=== PATIENT | female | born 1960 | race Caucasian/White ===

== ENCOUNTER 2021-03-30 15:46 | Emergency (ER) | payer OTHER, SELFPAY ==
--- NOTE | ~2021-03-30 | XR_ITS ---
EXAMINATION: XR facial bones min 3V DATE: 03/30/2021 16:41 INDICATION: Face injury. TECHNIQUE: 4 views of the facial bones were obtained. COMPARISON: None. FINDINGS: There is rightward deviation of the nasal septum. No fracture. IMPRESSION: 1. Rightward deviation of the nasal septum. Reviewed, dictated and finalized at location A.
--- NOTE | ~2021-03-30 | XR_ITS ---
EXAMINATION: XR nasal bones min 3V DATE: 03/30/2021 16:41 INDICATION: Face injury. TECHNIQUE: 3 views of the nasal bones were obtained. COMPARISON: None. FINDINGS: There is mild rightward deviation of the nasal septum. No fracture. IMPRESSION: 1. No fracture. Reviewed, dictated and finalized at location A. IMPRESSION: 1. No fracture.
--- NOTE | ~2021-03-30 | XR_ITS ---
EXAMINATION: XR orbits min 4V DATE: 03/30/2021 16:42 INDICATION: Face injury. TECHNIQUE: 4 views of the orbits were obtained. COMPARISON: None. FINDINGS: There is rightward deviation of the nasal septum. No fracture. IMPRESSION: 1. Rightward deviation of the nasal septum. Reviewed, dictated and finalized at location A.
[2021-03-30 16:02] VITALS: BP 101/70; PULSE 77; RESP 16; TEMP 36.7; O2SAT 100
[2021-03-30 16:16] VITALS: BP 101/70; PULSE 77; RESP 16; TEMP 36.7; O2SAT 100
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
--- NOTE | 2021-03-30 16:52 | PC.NURSE ---
PT DECLINED ICE FOR COMFORT
== END 2021-03-30 17:18 | disposition home or self-care (01) ==
PROVIDERS: Emergency Provider Nurse Practitioner; PCP Internal Medicine
DX: S05.12XA Contusion of eyeball and orbital tissues, left eye, initial encounter (principal); S05.11XA Contusion of eyeball and orbital tissues, right eye, initial encounter; W06.XXXA Fall from bed, initial encounter; F17.210 Nicotine dependence, cigarettes, uncomplicated; Z87.820 Personal history of traumatic brain injury; I10 Essential (primary) hypertension; F41.9 Anxiety disorder, unspecified
CPT/HCPCS: 70150; 70160; 70200; 99203; G0463

== ENCOUNTER 2021-06-02 15:56 | Emergency (ER) | payer OTHER, SELFPAY ==
[2021-06-02 16:00] VITALS: BP 113/72; PULSE 85; RESP 20; TEMP 37; O2SAT 99
--- NOTE | 2021-06-02 16:01 | ED.SKABFB ---
HPI - Skin/Abscess/Foreign Bdy General Chief complaint: Skin/Abscess/Foreign Body Stated complaint: poison ghulam on face Time Seen by Provider: 06/02/21 16:02 Source: patient Mode of arrival: ambulatory Limitations: no limitations History of Present Illness MD complaint: rash Related Data Home Medications Medication Instructions Recorded Confirmed amlodipine 10 mg PO DAILY 03/30/21 06/02/21 atenolol 25 mg PO DAILY 03/30/21 06/02/21 bupropion HCl 150 mg PO QAM 03/30/21 06/02/21 hydrochlorothiazide 12.5 mg PO DAILY 03/30/21 06/02/21 olmesartan 40 mg PO DAILY 03/30/21 06/02/21 montelukast 10 mg PO HS 06/02/21 06/02/21 omeprazole 20 mg PO DAILY 06/02/21 06/02/21 Allergies Allergy/AdvReac Type Severity Reaction Status Date / Time No Known Allergies Allergy Verified 06/02/21 16:16 Review of Systems Review of Systems: CONSTITUTIONAL: Denies fever, chills, or sweats. EYES: Denies visual changes, redness, or discharge. ENT: Denies rhinorrhea, congestion, sore throat, or otalgia. CARDIOVASCULAR: Denies chest pain, palpitations, or edema. RESPIRATORY: Denies cough or dyspnea. GASTROINTESTINAL: Denies abdominal pain, nausea, vomiting, or diarrhea. GENITOURINARY: Denies dysuria or hematuria. SKIN: Denies rash or itching. Itchy rash to both arms and left side of face MUSCULOSKELETAL: Denies back pain, joint pain, or myalgia. NEUROLOGIC: Denies headache, numbness, or weakness. PSYCHIATRIC: Denies anxiety or depression. [facility] Past Medical History Medical History TBI (traumatic brain injury) Family History Family History (Updated 03/30/21 @ 16:41 by Sandra Ocasio CNP) Other Hypertension Social History Social History (Updated 03/30/21 @ 16:43 by Sandra Ocasio CNP) Smoking packs per day: 0.2 Smoking cigarettes per day: 4.0 Smoking status: Current every day smoker Tobacco type: cigarettes Alcohol intake: current Comments At time of signature, agree with nursing past medical, surgical, social and family history. There is no relevant family history pertinent to the presenting complaint Exam Narrative: GENERAL: Well-appearing, well-nourished, and in no acute distress. HEAD: Normocephalic, atraumatic. EYES: PERRLA and EOMI. ENT: Nares clear, no rhinorrhea or epistaxis. Mucous membranes moist. NECK: Supple. CHEST: Clear to auscultation. No respiratory distress. HEART: Regular rate and rhythm. No murmur heard. Normal peripheral pulses. ABDOMEN: Soft, nontender, nondistended, normal active bowel sounds. EXTREMITIES: Normal range of motion. No edema. SKIN: Warm, dry, RASH CONSISTENT WITH RHUS DERMATITIS. LINEAR LAZO WITH WET LIKE APPEARS ON NEW AREAS. DIFFERENT STAGES PRESENT. REDNESS TO LESIONS. NO SIGNS OF INFECTION OR CELLULITIS/ABSCESS. NO VESICLES. NO ULCERATIONS. NO RAISED URTICARIAL LESIONS. NO LESIONS ALONG THE WAISTBAND OR IN WEB SPACES. NO BURROWS. NO PETECHIAE. Rash to left side of face, both forearms and both lower extremities NEURO: No focal deficits. Alert and oriented x3. Sammie Coma Scale Eye Opening: Spontaneous 4 Springer Coma Scale Motor: Obeys Commands 6 Sammie Coma Scale Verbal: Oriented 5 Springer Coma Scale Total 15 Course Vital Signs Vital signs: Vital Signs Temperature 37.0 C 06/02/21 16:00 Pulse Rate 85 06/02/21 16:00 Respiratory Rate 20 06/02/21 16:00 Blood Pressure 113/72 06/02/21 16:00 Pulse Oximetry 99 06/02/21 16:00 Temperature 37.0 C 06/02/21 16:00 Pulse Rate 85 06/02/21 16:00 Respiratory Rate 20 06/02/21 16:00 Blood Pressure 113/72 06/02/21 16:00 Pulse Oximetry 99 06/02/21 16:00 Critical dx considered and discussed with pt. Educated patient on red flag s/s and to go to ED if s/s occur. Discussed with pt when to return to [facility] or primary care provider. Pt gave verbal undertstanding, all questions were answered, and pt was agreeable to plan Regarding diagnosis, Rega
[2021-06-02] MEDS: methylPREDNISolone SOD SUCC 125 MG VIAL IM (16:28)
== END 2021-06-02 16:48 | disposition home or self-care (01) ==
PROVIDERS: Emergency Provider Nurse Practitioner Family; PCP Internal Medicine
DX: L23.7 Allergic contact dermatitis due to plants, except food (principal); F17.210 Nicotine dependence, cigarettes, uncomplicated; Z87.820 Personal history of traumatic brain injury
CPT/HCPCS: 96372; 99213; G0463; J2930

== ENCOUNTER 2021-06-18 11:31 | Emergency (ER) | payer OTHER, SELFPAY ==
[2021-06-18 11:40] VITALS: BP 96/76; PULSE 83; RESP 18; TEMP 36.8; O2SAT 99
--- NOTE | 2021-06-18 12:34 | ED.SKABFB ---
HPI - Skin/Abscess/Foreign Bdy General Chief complaint: Skin/Abscess/Foreign Body Stated complaint: Skin itching Time Seen by Provider: 06/18/21 12:36 Source: patient Mode of arrival: ambulatory Limitations: no limitations History of Present Illness HPI narrative: Lilliana Stinson is a 60 yo female with a PMH of HTN, seasonal allergies, GERD, anxiety, who comes to [facility] with poison ghulam. She was treated here on 06 02 but was not given a taper pack and she continues to have issues with rash on her back and itchy skin Related Data Home Medications Medication Instructions Recorded Confirmed amlodipine 10 mg PO DAILY 03/30/21 06/18/21 atenolol 25 mg PO DAILY 03/30/21 06/18/21 bupropion HCl 150 mg PO QAM 03/30/21 06/18/21 hydrochlorothiazide 12.5 mg PO DAILY 03/30/21 06/18/21 olmesartan 40 mg PO DAILY 03/30/21 06/18/21 montelukast 10 mg PO HS 06/02/21 06/18/21 omeprazole 20 mg PO DAILY 06/02/21 06/18/21 Allergies Allergy/AdvReac Type Severity Reaction Status Date / Time No Known Allergies Allergy Verified 06/18/21 12:05 Review of Systems Review of Systems: CONSTITUTIONAL: Denies fever, chills, sweats. EYES: Denies visual changes, redness, discharge. ENT: Denies rhinorrhea, congestion, sore throat, otalgia. CARDIOVASCULAR: Denies chest pain, palpitations, edema. RESPIRATORY: Denies dyspnea, wheezing, cough GASTROINTESTINAL: Denies abdominal pain, nausea, vomiting, diarrhea. GENITOURINARY: Denies dysuria, hematuria, abnormal discharge SKIN: Contact dermatitis is not resolved since visit on 06-02 NEUROLOGIC: Denies numbness, or focal weakness. PSYCHIATRIC: Denies anxiety or depression. [facility] Past Medical History Medical History (Updated 06/18/21 @ 12:54 by Sandra Ocasio CNP) GERD (gastroesophageal reflux disease) Hypertension Seasonal allergies TBI (traumatic brain injury) Family History Family History (Updated 06/18/21 @ 12:50 by Sandra Ocasio CNP) Other Heart disease Hypertension Social History Social History (Updated 03/30/21 @ 16:43 by Sandra Ocasio CNP) Smoking packs per day: 0.2 Smoking cigarettes per day: 4.0 Smoking status: Current every day smoker Tobacco type: cigarettes Alcohol intake: current Comments At time of signature, I agree with nursing past medical, surgical, social and family history. There is no relevant family history pertinent to the presenting complaint. Exam Narrative: GENERAL: This is a well-nourished, well-developed patient, in mild distress. HEAD: normocephalic, atraumatic. EYES: Sclera clear/white. Vision is grossly intact. EARS: External ears normal, auditory canals clear and without drainage, TMs normal without perforation. Hearing grossly intact. NOSE: External nose normal without nasal discharge, nares without redness, no rhinorrhea. THROAT: Mucous membranes moist, NECK: Neck supple, CARDIOVASCULAR: Regular rate and rhythm without murmurs, gallops, or rubs. RESPIRATORY: Clear to auscultation. Breath sounds equal bilaterally. No wheezes, rales, or rhonchi. GASTROINTESTINAL: Abdomen soft, SKIN: warm, intact with complaints of which he had small amount of red rash along lower back along pant line NEURO: awake, alert, and oriented to person, place and time. There were no obvious focal neurologic abnormalities. Steady gait EXTREMITIES: Normal range of motion. BACK: Nontender without deformity Course Course Emergency Course: Patient was treated with Solu-Medrol on 06 02 but no additional medication Started on taper pack of prednisone and famotidine Discussed poison ghulam transmission and weather close tools shoes had been washed Vital Signs Vital signs: Vital Signs Temperature 98.3 F 06/18/21 11:40 Pulse Rate 83 06/18/21 11:40 Respiratory Rate 18 06/18/21 11:40 Blood Pressure 96/76 L 06/18/21 11:40 Pulse Oximetry 99 06/18/21 11:40 Temperature 98.3 F 06/18/21 11:40 Pulse Rate 83 06/18/21 11:40 Respiratory R
== END 2021-06-18 13:00 | disposition home or self-care (01) ==
PROVIDERS: Emergency Provider Nurse Practitioner; PCP Internal Medicine
DX: L23.7 Allergic contact dermatitis due to plants, except food (principal); F17.210 Nicotine dependence, cigarettes, uncomplicated; K21.9 Gastro-esophageal reflux disease without esophagitis; I10 Essential (primary) hypertension; Z87.820 Personal history of traumatic brain injury; F41.9 Anxiety disorder, unspecified
CPT/HCPCS: 99213; G0463

== ENCOUNTER 2024-03-28 10:47 | Emergency (ER) | payer OTHER, SELFPAY ==
--- NOTE | ~2024-03-28 | XR_ITS ---
[[id number] ] INDICATION: Chest pain TECHNIQUE: Frontal projection of the upper ribs, frontal projection of the lower ribs, oblique projec tion of all the ribs, frontal inspiratory chest x-ray for interpretation. FINDINGS: There are no displaced rib fractures identified. There are no soft tissue abnormality see n. The lungs are clear. Spinal stimulator leads overlie the midthoracic spine. There is levoscolios is of the thoracic spine. IMPRESSION: 1:No acute displaced rib fractures. Reviewed, dictated and finalized at location B.
[2024-03-28 10:56] VITALS: BP 139/93; PULSE 77; RESP 20; TEMP 36.6; O2SAT 99
--- NOTE | 2024-03-28 10:57 | ED.GENADULT ---
HPI - General Adult General Chief complaint: Extremity Injury, Upper Stated complaint: Right arm and back pain Source: patient Mode of arrival: ambulatory Limitations: no limitations History of Present Illness HPI narrative: 63 y/o female with history of dementia reports right shoulder blade pain and right chest pain. Unsure of injury or onset. Pt is a poor historian, A&O x1 self, resides in assisted living, accompanied by brother. Pt indicates the pain shoots down the arm. Today pt's brother says she called him this morning about the pain; denies bruising. Brother saw her 2 days ago and pt had no pain, however pt's mother also resides in the assisted living and told the brother pt reported pain a few days prior. History of chronic back pain with a stimulator. Related Data Home Medications Medication Instructions Recorded Confirmed atenolol 25 mg tablet 25 mg PO DAILY 03/28/24 03/28/24 bupropion HCl 150 mg 24 hr tablet, 150 mg PO DAILY 03/28/24 03/28/24 extended release melatonin 10 mg capsule 10 mg PO DAILY 03/28/24 03/28/24 montelukast 10 mg tablet 10 mg PO DAILY 03/28/24 03/28/24 omeprazole 20 mg capsule,delayed 20 mg PO DAILY 03/28/24 03/28/24 release Allergies Allergy/AdvReac Type Severity Reaction Status Date / Time No Known Allergies Allergy Verified 03/28/24 11:08 Review of Systems Review of Systems: CONSTITUTIONAL: Denies body aches, fever, chills EYES: Denies visual changes ENT: Denies rhinorrhea, congestion CARDIOVASCULAR: Denies chest pain, palpitations, or edema. RESPIRATORY: Denies cough or dyspnea. GASTROINTESTINAL: Denies abdominal pain, nausea, vomiting, or diarrhea. SKIN: Denies rash, itching, or wounds. MUSCULOSKELETAL: reports right posterior shoulder and right chest pain NEUROLOGIC: Denies headache, numbness, tingling, or weakness. PSYCH: Denies depression or anxiety. All systems reviewed & are unremarkable except as noted in HPI and below PMFSH Past Medical History Medical History GERD (gastroesophageal reflux disease) Hypertension Seasonal allergies TBI (traumatic brain injury) Family History Family History Other Heart disease Hypertension Social History Social History Smoking packs per day: 0.2 Smoking cigarettes per day: 4.0 Smoking status: Current every day smoker Tobacco type: cigarettes Alcohol intake: current Comments At time of signature, I have reviewed and agree with nursing past medical, surgical, social and family history unless otherwise noted. Please see nursing chart for further information. There is no relevant family history pertinent to the presenting complaint Exam Narrative: GENERAL: Well-appearing CHEST: Speaks in full sentences. No respiratory distress. Pt intermittently clutches right anterior chest/breast, nontender with palpation. HEART: Regular rate and rhythm. Normal and equal peripheral pulses. EXTREMITIES: Right shoulder with full range of motion without pain with movement. No edema or ecchymosis, no point tenderness. Right arm/hand has normal strength and sensation, No open wounds, skin tenting, or obvious deformity; alignment normal, pulse palpable and equal bilaterally, skin warm, dry, pink. Capillary refill less than 3 seconds. SKIN: Warm, dry, no rash. NEURO: Alert and oriented x3. PSYCH: Normal mood and affect Course Course Emergency Course: Patient is aware of diagnosis, understands and agrees to treatment plan. Anticipatory guidance given. Patient agrees to follow-up as directed and is aware of reasons to seek care at the emergency department. Portions of this record may have been created with voice recognition software Level [facility] Care: [facility] Vital Signs Vital signs: Vital Signs Temperature 97.8 F 03/28/24 10:56 Puls
[2024-03-28 11:08] VITALS: BP 139/93; PULSE 77; RESP 20; TEMP 36.6; O2SAT 99
== END 2024-03-28 12:05 | disposition short-term general hospital (02) ==
PROVIDERS: Emergency Provider Nurse Practitioner Family; PCP Internal Medicine
DX: R07.9 Chest pain, unspecified (principal); F17.210 Nicotine dependence, cigarettes, uncomplicated; K21.9 Gastro-esophageal reflux disease without esophagitis; I10 Essential (primary) hypertension
CPT/HCPCS: 71111; 99213; G0463